=== PATIENT | male | born 1965 ===

== ENCOUNTER 2018-10-23 15:21 | Emergency (ER) | payer OTHER ==
[~2018-10-23] VITALS: Ht 177.8 cm; Wt 99.8 kg
[2018-10-23] MEDS ORDERED: HYZAAR 100-12.1 EACH (15:48)
[2018-10-23] MEDS ORDERED: ATENOLOL100 MG (15:49)
[2018-10-23] MEDS ORDERED: TRICON CAPSULE1 EACH (15:49)
[2018-10-23] MEDS ORDERED: SYNTHROID125 MCG (15:49)
[2018-10-23] MEDS ORDERED: CARDURA1 MG (15:50)
== END 2018-10-23 20:24 | disposition home or self-care (01) ==
LOC: ER 15:21
DX: R00.2 Palpitations (principal)

== ENCOUNTER 2020-05-03 11:30 | Emergency (ER) | payer OTHER ==
[~2020-05-03] VITALS: Ht 177.8 cm; Wt 102.1 kg
[~2020-05-03 11:30] MED LIST: ATENOLOL100 MG; CARDURA1 MG; HYZAAR 100-12.1 EACH; SYNTHROID125 MCG; TRICON CAPSULE1 EACH
[2020-05-03] MEDS ORDERED: LOSARTAN POTAS100 MG (11:41)
[2020-05-03] MEDS ORDERED: HYDROCHLOROTH12.5 MG (11:42)
[2020-05-03] MEDS ORDERED: LIPITOR20 MG (11:43)
[2020-05-03] MEDS ORDERED: PEPCID AC20 MG PO (15:18)
== END 2020-05-03 15:27 | disposition home or self-care (01) ==
LOC: ER 11:30
DX: K42.9 Umbilical hernia without obstruction or gangrene (principal); Z03.818 Encounter for observation for suspected exposure to other biological agents ruled out